=== PATIENT | female | born 1990 | race Hispanic/Latino ===

== ENCOUNTER 2018-04-26 16:17 | Emergency (ER) | payer SELFPAY ==
[2018-04-26 16:39] VITALS: BP 116/75
--- NOTE | 2018-04-26 19:19 | EDM.PDOC ---
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 She does not remember if her last menstrual period was 4-5 weeks ago on [place] more in the range of 8-9 weeks ago. She did do a home test either earlier today her last evening and that was positive. Dense here for verification. No abdominal pain or cramping at this time. No unusual bleeding or spotting. No other unusual symptomatology. - Related Data Allergies Allergy/AdvReac Type Severity Reaction Status Date / Time No Known Allergies Allergy Verified 09/13/15 00:16 Home Meds: Home Meds . [No Known Home Meds] 04/26/18 [History] Past Medical History - Past Health History Medical/Surgical History: Denies Medical/Surgical History Social & Family History - Tobacco Use Smoking Status *Q: Current Every Day Smoker Years of Tobacco use: 4 Packs/Tins Daily: 1 - Caffeine Use Caffeine Use: Reports: None - Recreational Drug Use Recreational Drug Use: No ED ROS GENERAL - Review of Systems Review Of Systems: See Below Constitutional: Reports: No Symptoms HEENT: Reports: No Symptoms Respiratory: Denies: Shortness of Breath Cardiovascular: Denies: Chest Pain GI/Abdominal: Denies: Abdominal Pain, Nausea, Vomiting : Reports: No Symptoms Musculoskeletal: Reports: No Symptoms Skin: Reports: No Symptoms ED EXAM - Physical Exam Exam: See Below General Appearance: Alert, No Apparent Distress Throat/Mouth: Normal Inspection Head: Normocephalic Neck: Supple Respiratory/Chest: No Respiratory Distress, Lungs Clear Cardiovascular: Regular Rate, Rhythm GI/Abdominal Exam: Soft, Non-Tender. No: Guarding Neurological: Alert, No Motor/Sensory Deficits Skin Exam: Warm, Dry, Normal Color Course - Vital Signs Last Recorded V/S: Last Vital Signs Temp 98.1 F 04/26/18 16:38 Pulse 82 04/26/18 16:38 Resp 20 04/26/18 16:38 BP 116/75 04/26/18 16:38 Pulse Ox 99 04/26/18 16:38 - Orders/Labs/Meds Labs: Laboratory Tests 04/26/18 Range/Units 17:32 Urine HCG, Qual Positive (NEGATIVE) - Re-Assessments/Exams Free Text/Narrative Re-Assessment/Exam: 04/26/18 19:16 Urine test did come back positive. Departure - Departure Time of Disposition: 19:16 Disposition: Home, Self-Care 01 Condition: Fair Clinical Impression: First trimester - Discharge Information Instructions: First Trimester of , [id number] Referrals: PCP,None [Primary Care Provider] - Forms: ED Department Discharge Additional Instructions: Your urine test for us was positive. That does not date your . For now we have to go by your last known menstrual period. 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 At the time of your first ultrasound more accurate information will be obtained as to how far along you are with the . Eat regular meals and snacks. Drink plenty of water to maintain hydration. Return to ED as needed.
== END 2018-04-26 19:25 | disposition home or self-care (01) ==
LOC: JD.ED 16:17
DX: Z32.01 Encounter for pregnancy test, result positive (principal); F17.210 Nicotine dependence, cigarettes, uncomplicated
CPT/HCPCS: 81025; 99282

== ENCOUNTER 2018-05-03 00:14 | Emergency (ER) | payer SELFPAY ==
[2018-05-03 00:36] VITALS: BP 118/76
--- NOTE | 2018-05-03 01:35 | EDM.PDOC ---
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 ED EXAM - Physical Exam Exam: See Below Course - Vital Signs Last Recorded V/S: Last Vital Signs Temp 37.2 C 05/03/18 00:32 Pulse 97 05/03/18 00:32 Resp 19 05/03/18 00:32 BP 118/76 05/03/18 00:32 Pulse Ox 99 05/03/18 00:32 - Orders/Labs/Meds Orders: Active Orders 24 hr Category Date Time Status ABO/RH TYPE [BBK] Stat Lab 05/03/18 01:25 Received HCG QUANTITATIVE,SERUM [CHEM] Stat Lab 05/03/18 01:25 Received HGB [HEMOGLOBIN] [HEME] Stat Lab 05/03/18 01:25 Received Departure - Departure Time of Disposition: 01:33 Disposition: Home, Self-Care 01 Condition: Fair Clinical Impression: Threatened - Discharge Information *PRESCRIPTION DRUG MONITORING PROGRAM REVIEWED*: Not Applicable *COPY OF PRESCRIPTION DRUG MONITORING REPORT IN PATIENT JAY: Not Applicable Referrals: PCP,None [Primary Care Provider] - Additional Instructions: Followup with Dr Delgado, as we discussed. Bed rest tonight. Call or return if bleeding increases, with more clots. - My Orders Last 24 Hours: My Active Orders 05/03/18 01:25 ABO/RH TYPE [BBK] Stat HCG QUANTITATIVE,SERUM [CHEM] Stat HGB [HEMOGLOBIN] [HEME] Stat - Assessment/Plan Last 24 Hours: My Active Orders 05/03/18 01:25 ABO/RH TYPE [BBK] Stat HCG QUANTITATIVE,SERUM [CHEM] Stat HGB [HEMOGLOBIN] [HEME] Stat
--- NOTE | 2018-05-03 03:20 | ER ---
REASON FOR EMERGENCY ROOM VISIT: Spotting and vaginal bleeding with recently diagnosed . HISTORY OF PRESENT ILLNESS: This 27-year-old woman was just in here on 04/26 after she had a positive home test. She was seen by Dr. Torres and her estimated date of conception could not be ascertained. She had a positive test done at that time to confirm her . Last night, she started spotting a small amount and it was a bit heavier today. She only used 2 or 3 pads throughout the whole day and did notice some small clots this evening. She has not had any crampy abdominal discomfort or any kind of pain. She denies any dysuria. She has had no other unusual symptoms. CURRENT MEDICATIONS: None. ALLERGIES: None. PAST MEDICAL HISTORY: Reviewed. See EMR. REVIEW OF SYSTEMS: Pertinent positives and negatives as listed in the HPI. PHYSICAL EXAMINATION: GENERAL: Reveals a pleasant, calm woman in no acute distress. She is afebrile. Heart rate is 97, blood pressure is 118/76, respiratory rate 19, O2 saturations 99%. HEENT: Unremarkable. Normal color. CHEST: Clear to auscultation. CARDIAC: Regular rate without murmur. ABDOMEN: Obese, soft, and nontender. There is no tenderness whatsoever to deep palpation in the lower abdomen. There is no rebound or guarding. No palpable masses. IMPRESSION: Threatened . We went ahead and molly blood for Rh typing and a quantitative HCG as well as a hemoglobin. The hemoglobin was 12.1. DISCHARGE DIAGNOSIS: Threatened . PLAN: She has not bled very much at all really and I stressed the importance that she is to take it easy tonight and tomorrow and we did give her contact information, so an appointment can be made in order for her to be evaluated by PIT AND AUXILIARIES SUPERVISOR (Dr. Delgado). She was told that should she begin to develop crampy discomfort or increased bleeding particularly with clots, she should be re-evaluated. I could not prognosticate whether or not this represented a complete AB or was it incomplete AB versus a threatened AB at this time. She understands the importance of arranging an appointment for followup tomorrow. All questions were answered. She agrees to this plan. ALYSA /[id number] RASHAD
== END 2018-05-03 02:04 | disposition home or self-care (01) ==
LOC: JD.ED 00:14
DX: O20.0 Threatened abortion (principal); F17.210 Nicotine dependence, cigarettes, uncomplicated
CPT/HCPCS: 36415; 84702; 85018; 86900; 86901; 99284

== ENCOUNTER 2019-08-23 21:40 | Emergency (ER) | payer SELFPAY ==
[2019-08-23 22:06] VITALS: BP 117/77; PULSE 92
[2019-08-23] MEDS ORDERED: cefTRIAXone 1 GM Vial IM ONE (22:06)
--- NOTE | 2019-08-23 22:10 | EDM.PDOC ---
ED HPI GENERAL MEDICAL PROBLEM - General Chief Complaint: ENT Problem Stated Complaint: THROAT PAIN Time Seen by Provider: 08/23/19 22:02 Source of Information: Reports: Patient History Limitations: Reports: No Limitations - History of Present Illness INITIAL COMMENTS - FREE TEXT/NARRATIVE: Patient's unfortunate 29-year-old obese female who presents emergency Department and cough congestion runny nose and sore throat. Patient reports that symptoms started 21 days ago and progressively worsened since. Patient reports she is shaking congestion runny nose she does have productive yellow sputum no fever no shortness of breath no wheezing no chest pain. 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: Social & Family History - Caffeine Use Caffeine Use: Reports: Tea ED ROS ENT - Review of Systems Review Of Systems: See Below Constitutional: Denies: Fever HEENT: Reports: Rhinitis, Throat Pain Respiratory: Reports: Cough, Sputum ED EXAM, ENT - Physical Exam Exam: See Below Exam Limited By: No Limitations General Appearance: Alert, WD/WN, Mild Distress, Obese Ears: Normal External Exam, Normal Canal, Hearing Grossly Normal, Normal TMs Mouth/Throat: Pharyngeal Erythema, Throat Pain Neck: Normal Inspection, Supple, Non-Tender, Full Range of Motion, Lymphadenopathy (L), Lymphadenopathy (R) Respiratory/Chest: No Respiratory Distress, Lungs Clear, Normal Breath Sounds, No Accessory Muscle Use, Chest Non-Tender Cardiovascular: Normal Peripheral Pulses, Regular Rate, Rhythm, No Edema, No Gallop, No JVD, No Murmur, No Rub GI/Abdominal: Normal Bowel Sounds, Soft, Non-Tender, No Organomegaly, No Distention, No Abnormal Bruit, No Mass Back: Normal Inspection, Full Range of Motion Extremities: Normal Inspection, Normal Range of Motion, Non-Tender, No Pedal Edema, Normal Capillary Refill Neurological: Alert Skin: Warm, Dry, No Rash Course - Vital Signs Last Recorded V/S: Last Vital Signs Temp 97.8 F 08/23/19 22:02 Pulse 92 08/23/19 22:02 Resp 18 08/23/19 22:02 BP 117/77 08/23/19 22:02 Pulse Ox 97 08/23/19 22:02 - Orders/Labs/Meds Orders: Active Orders 24 hr Category Date Time Status Triamcinolone Acetonide [Kenalog-40] Med 08/23/19 22:06 Once 40 mg INJECT ONETIME ONE cefTRIAXone [Rocephin] Med 08/23/19 22:06 Once 1 gm IM ONETIME ONE Departure - Departure Time of Disposition: 22:07 Disposition: Home, Self-Care 01 Clinical Impression: Acute sinusitis - Discharge Information Prescriptions: Azithromycin [Zithromax] 250 mg PO ASDIRECTED #1 pack Promethazine/Dextromethorphan [Promethazine-Dm Solution] 5 ml PO Q4H PRN #120 ml PRN Reason: Cough Referrals: PCP,None [Primary Care Provider] - Forms: ED Department Discharge, ED Return to Work/School Form Additional Instructions: Home, rest, adequate fluids, Tylenol for fever or pain, return as needed for worsening condition Sepsis Event Note - Evaluation Sepsis Screening Result: No Definite Risk - Focused Exam Vital Signs: Vital Signs Temp Pulse Resp BP Pulse Ox 08/23/19 22:02 97.8 F 92 18 117/77 97 Date Exam was Performed: 08/23/19 Time Exam was Performed: 22:06 - My Orders Last 24 Hours: My Active Orders 08/23/19 22:06 Triamcinolone Acetonide [Kenalog-40] 40 mg INJECT ONETIME ONE cefTRIAXone [Rocephin] 1 gm IM ONETIME ONE - Assessment/Plan Last 24 Hours: My Active Orders 08/23/19 22:06 Triamcinolone Acetonide [Kenalog-40] 40 mg INJECT ONETIME ONE cefTRIAXone [Rocephin] 1 gm IM ONETIME ONE
[2019-08-23] MEDS ORDERED: Lidocaine 1% 10 ML MDV ONE (22:14)
[2019-08-23] MEDS ORDERED: Triamcinolone Acetonide 40 MG/ML 1 ML MDV ONE (22:14)
== END 2019-08-23 22:25 | disposition home or self-care (01) ==
LOC: JD.ED 21:40
DX: J01.90 Acute sinusitis, unspecified (principal)
CPT/HCPCS: 96372; 99283; J0696; J2001; J3301

== ENCOUNTER 2022-07-26 20:31 | Emergency (ER) | payer SELFPAY ==
[2022-07-26 21:55] VITALS: BP 110/67; PULSE 99
[2022-07-26 22:48] LABS: CORONAVIRUS COVID-19 NAA NEGATIVE (NEGATIVE)
== END 2022-07-26 23:04 | disposition home or self-care (01) ==
LOC: JD.ED 20:31
DX: B34.9 Viral infection, unspecified (principal); F17.210 Nicotine dependence, cigarettes, uncomplicated; Z20.822 Contact with and (suspected) exposure to COVID-19
CPT/HCPCS: 0240U; 87651; 99283